=== PATIENT | male | born 1990 | race Hispanic/Latino ===

== ENCOUNTER 2017-03-28 16:11 | Emergency (ER) | payer OTHER ==
[2017-03-28 17:15] LABS: Basophils % (Auto) 0.4 % (0.0-1.8); Eosinophils % (Auto) 0.2 % (0.0-4.3); Hematocrit 51.3 % (35.5-45.6); Hemoglobin 17.5 gm/dl (11.8-15.2); Mean Corpuscular HGB Conc 34 % (32-34); Mean Corpuscular Hemoglobin 31 pg (28-32); Mean Corpuscular Volume 90 fl (84-94); Platelet Count 235 K/mm3 (140-440); Red Blood Count 5.71 M/mm3 (3.65-5.03); Red Cell Distribution Width 13.3 % (13.2-15.2); White Blood Count 13.3 K/mm3 (4.5-11.0)
[2017-03-28 17:32] LABS: Anion Gap 19 mmol/L; Blood Urea Nitrogen 5 mg/dL (9-20); Calcium 9.5 mg/dL (8.4-10.2); Carbon Dioxide 21 mmol/L (22-30); Chloride 101.3 mmol/L (98-107); Glucose 102 mg/dL (75-100); Potassium 3.7 mmol/L (3.6-5.0); Sodium 138 mmol/L (137-145)
[2017-03-28 18:02] LABS: Urine Drugs of Abuse Note Disclamer
[2017-03-28 18:11] LABS: Bilirubin,Urine NEG (Negative); Blood,Urine NEG (Negative); Ketones,Urine 20 mg/dL (Negative); Leukocyte Esterase,Urine NEG (Negative); Mucus,Urine 3+ /HPF; Nitrite,Urine NEG (Negative)
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
--- NOTE | 2017-03-30 08:36 | Progress Note ---
Subjective - Reason for Consult Consult date: 03/30/17 Reason for consult: Psychiatry Follow-up - Chief Complaint Chief complaint: "I feel bad" 26-year-old white male presents to the emergency Department via law enforcement and EMS for mental health evaluation. Today patient is calm and cooperative during assessment. He states feeling better today and wanted to discuss what options he has to get off "street drugs." He stated that need to get far away from his brother because he is a "bad influence." Patient denies SI/HI's, AVH's , or sleep disturbance. Patient has an hx of depression. Mental Status Exam - Vital signs Last Vital Signs Temp 97.5 F L 03/30/17 07:55 Pulse 87 03/30/17 07:55 Resp 18 03/30/17 07:55 BP 113/72 03/30/17 07:55 Pulse Ox 100 03/30/17 07:55 - Exam Narrative exam: MSE Appearance: calm, cooperative Behavior: good eye contact Speech: regular rate and tone Mood: "okay" Affect: mood congruent Thought Process: linear Thought Content: denies SI/HI's and AVH's Motor Activity: ambulatory Cognition: a/o x3 Insight: fair Judgment: fair Assessment and Plan Impression: 26-year-old white male presents to the emergency Department via law enforcement and EMS for mental health evaluation. Today patient is calm and cooperative during assessment. He states feeling better today and wanted to discuss what options he has to get off "street drugs." Substance induce psychosis has resolved. He denies SI/HI's and AVH's. Recommendation/Plan: Continue 1013 with possible inpatient psy services. Start Zoloft 50 mg PO Daily for depression. Discussed possible suicidality and medication induced melissa reference antidepressant. Legal Archivist involved, patient is homeless.
[2017-03-30] MEDS: ZOLOFT PO SCH (18:46)
[2017-03-31] MEDS: ZOLOFT PO SCH (09:30)
[2017-03-31 10:01] VITALS: BP 106/78
--- NOTE | 2017-03-31 15:54 | Progress Note ---
Subjective - Reason for Consult Consult date: 03/31/17 Reason for consult: psychiatric follow up - Chief Complaint Chief complaint: "I feel bad" 26-year-old white male presents to the emergency Department via law enforcement and EMS for mental health evaluation. Today patient is calm and cooperative during assessment. He states feeling better today. Patient denies SI/HI's, AVH's , or sleep disturbance. Mental Status Exam - Vital signs Last Vital Signs Temp 98.6 F 03/31/17 08:55 Pulse 91 H 03/31/17 08:55 Resp 16 03/31/17 08:55 BP 106/78 03/31/17 08:55 Pulse Ox 97 03/31/17 08:55 - Exam Narrative exam: MSE Appearance: calm, cooperative Behavior: good eye contact Speech: regular rate and tone Mood: "okay" Affect: mood congruent Thought Process: linear Thought Content: denies SI/HI's and AVH's Motor Activity: ambulatory Cognition: a/o x3 Insight: fair Judgment: fair Assessment and Plan Impression: 26-year-old white male presents to the emergency Department via law enforcement and EMS for mental health evaluation. Today patient is calm and cooperative during assessment. He states feeling better today and wants to leave. Substance induce psychosis has resolved. He denies SI/HI's and AVH's. Recommendation/Plan: Continue 1013 with possible inpatient psy services. Continue Zoloft 50 mg PO Daily for depression.
== END 2017-03-31 15:56 ==
LOC: EEVIPCON 16:11 → ED 16:11
DX: F23 Brief psychotic disorder (principal); R45.851 Suicidal ideations; F17.200 Nicotine dependence, unspecified, uncomplicated; F14.10 Cocaine abuse, uncomplicated; F12.10 Cannabis abuse, uncomplicated; Z88.8 Allergy status to other drugs, medicaments and biological substances
CPT/HCPCS: 36415; 80048; 80307; 81001; 85025; 99285; G0480; 80320